=== PATIENT | female | born 1935 | race Caucasian/White ===

== ENCOUNTER 2020-12-11 16:08 | Outpatient (RCR) | payer MEDICARE, SELFPAY | END 2020-12-11 23:59 | LOC: IMMUN 16:08 | PROVIDERS: PCP Family Medicine; Referring Provider Family Medicine; Visit Provider Family Medicine | DX: Z23 Encounter for immunization (principal) | CPT/HCPCS: 0011A; 0012A; 91301 ==

== ENCOUNTER 2022-03-28 20:10 | Emergency (ER) | payer MEDICARE, OTHER, SELFPAY ==
[2022-03-28 20:11] VITALS: BP 156/90; PULSE 59; RESP 16; TEMP 36.8; O2SAT 98; BMI 22.5
[2022-03-28 20:29] VITALS: BP 156/90; PULSE 59; RESP 16; TEMP 36.8; O2SAT 98
[2022-03-28 20:38] LABS: Bacteria 0 SEEN /hpf (None Seen); Mucous, Urine 0 SEEN /hpf (<or=2+); Red Blood Cells-Urine 0 SEEN /hpf (0-5)
[2022-03-28 20:43] LABS: Color, Urine Yellow (Yellow); Glucose, Dipstick Normal (Normal); Ketone-Dipstick Negative (Negative); Leukocyte Esterase-Dipstick 500 /ul (Negative); Nitrite-Dipstick Negative (Negative); Occult Blood-Urine Negative /ul (Negative); Protein-Dipstick 15 mg/dl (Negative); Specific Gravity, Urine 1.015 (1.002-1.030); Urine Bilirubin Dipstick Negative (Negative); Urine Clarity Clear (Clear); Urine Urobilinogen Normal (Normal)
--- NOTE | 2022-03-28 20:59 | EKG12_ITS ---
Test Reason : COMPLAINT Blood Pressure : / mmHG Vent. Rate : 050 BPM Atrial Rate : 050 BPM P-R Int : 234 ms QRS Dur : 092 ms QT Int : 442 ms P-R-T Axes : 053 -13 046 degrees QTc Int : 402 ms Sinus bradycardia with 1st degree A-V block Left ventricular hypertrophy with repolarization abnormality Abnormal ECG Confirmed by PATI CASAS, TYLER ([id number]), book or script editor ETIENNE DIA ([id number]) on 03/29/2022 2:00:57 PM Referred By: JON Confirmed By:TYLER KRUEGER MD
--- NOTE | 2022-03-28 21:00 | EDS_ITS ---
HPI History of Present Illness Chief Complaint: Complaint Detail of Chief Complaint: Not feeling well for 3 days Informant: patient and family Narrative Narrative: Patient presents to the emergency department complaints of not feeling well for the last 3 days. Patient sometimes feels this way when she has a urinary tract infection. She denies dysuria, urgency, or frequency. She denies hematuria. Patient's she states that she is prone to urinary tract infections. She does have history of tremor that typically gets worse when she is not feeling well. She describes lack of energy. She denies fever or cough. She denies chest pain or shortness of breath or abdominal pain. Prior similar symptoms: Yes PFSH [facility] Medical History (Updated 03/28/22 @ 22:[address] Agnes Travis, DO) Breast cancer Diabetes Hypertension Hypothyroidism Home Medications allopurinol 100 mg PO BID 03/28/22 [History Last Taken 03/28/22] amlodipine 10 mg PO DAILY 03/28/22 [History Last Taken 03/28/22] atorvastatin 10 mg PO DAILY 03/28/22 [History Last Taken 03/28/22] cholecalciferol (vitamin D3) [Vitamin D3] 25 mcg PO DAILY 03/28/22 [History Last Taken 03/28/22] famotidine 20 mg PO DAILY 03/28/22 [History Last Taken 03/28/22] folic acid 0.8 mg PO DAILY 03/28/22 [History Last Taken 03/28/22] ketotifen fumarate [Refresh Eye Itch Relief] 1 drp EACH EYE BID 03/28/22 [History Last Taken 03/28/22] levothyroxine 50 mcg PO DAILY 03/28/22 [History Last Taken 03/28/22] lisinopril-hydrochlorothiazide 1 tab PO BID 03/28/22 [History Last Taken 03/28/22] metformin 500 mg PO BID 03/28/22 [History Last Taken 03/28/22] potassium chloride 10 meq PO DAILY 03/28/22 [History Last Taken 03/28/22] propranolol 660 mg PO DAILY 03/28/22 [History Last Taken 03/28/22] sertraline 50 mg PO DAILY 03/28/22 [History Last Taken 03/28/22] Allergy/AdvReac Type Severity Reaction Status Date / Time No Known Allergies Allergy Verified 03/28/22 20:14 Surgical History (Updated 03/28/22 @ 20:35 by Thalia Thurman) H/O left mastectomy Social History Smoking Status: Never smoker ROS ROS ED ROS Narrative Not feeling well, fatigue Constitutional Constitutional ED: Reports systems reviewed and no addt'l complaints, except as documented; Denies body ache(s), change in weight or chills Eyes Eyes: Denies acute decrease in peripheral vision, change in vision, double vision or loss of vision ENT ENT ED: Reports none; Denies ear pain, lip swelling, loss taste/smell, neck pain, otalgia or sore throat Cardiovascular Cardiovascular: Reports none; Denies abdominal pain, chest pain with activity, leg edema, lightheadedness, palpitations, rapid heart rate or syncope Respiratory/Chest Respiratory/Chest: Reports none; Denies change in mental status, dry cough, dyspnea, hemoptysis, shortness of breath at rest or shortness of breath with exertion Gastrointestinal Gastrointestinal: Reports none; Denies abdominal pain, change in stool character, diarrhea, hematemesis, hematochezia, melena, rectal bleeding or vomiting Genitourinary Genitourinary ED: Reports none; Denies abdominal discomfort, anuria, dysuria, genital pain or polyuria Musculoskeletal Musculoskeletal: Reports none; Denies arthralgias, back pain, difficulty walking, extremity pain, muscle weakness or myalgias Integumentary Reports none; Denies abscess or rash Neurologic Neurologic: Reports none; Denies abnormal gait, confusion, focal weakness, frequent falls, headache(s), loss of vision, numbness, paresthesias, radicular pain, vertigo or weakness Psychiatric Psychiatric: Reports systems reviewed and no addt'l complaints, except as documented and none; Denies behavioral changes, confusion, difficulty concentrating, hallucinations, suicidal ideation, tactile hallucinations or visual hallucinations Endocrine Endocrinology: Denies none, cold intolerance, excessive sweating, fatigue or heat intolerance Hematologic/Lymphatic Hematologic/Lymphatic: Reports none; Denies anemia, easy bleeding or easy bruising Allergic/Immunologic Allergic/Immunologic ED: Denies as per HPI, none, lip swelling, mouth swelling, throat swelling, tongue swelling or hives EXAM Physical Exam Const Vital Signs: 03/28/22 20:11 03/28/22 20:29 03/28/22 21:14 Temperature 98.3 F 98.3 F Temperature Source Temporal Temporal Pulse Rate 59 L 59 L 49 L Respiratory Rate 16 16 15 Blood Pressure 156/90 H 156/90 H 175/63 H Blood Pressure Mean 112 112 100 Pulse Ox 98 98 95 Oxygen Delivery Method Room Air Room Air Room Air Positive well nourished and well developed General Appearance ED: well developed and NAD HEENT Reports TM's clear and moist mucous membranes normocephalic and atraumatic; Negative for trauma or tenderness Tympanic Membrane ED: Yes TM's clear Eyes PERRL and EOMs intact bilaterally General Eye ED: Negative for pale conjunctiva or scleral icterus Neck no lymphadenopathy, supple and no JVD General: Negative for tenderness Chest Wall inspection of chest normal and palpation of chest normal Chest: Negative for tenderness Resp normal respiratory effort and clear to auscultation bilaterally Effort and Inspection: Negative for respiratory distress or pain with movement Auscultation: Negative for rhonchi, wheezes or diminished lung sounds Cardio regular rate, regular rhythm, S1 normal heart sound, S2 normal heart sound and no murmurs Peripheral Pulses: pulses 2+ throughout GI normal to inspection, nondistended, normoactive bowel sounds, soft to palpation, non-tender, non-distended and no masses Back/Spine no CVA tenderness and no thoracic nor lumbar tenderness Extremity normal to inspection General Extremety ED: Negative for edema General Extremity: Negative for edema Neuro oriented x3, CN's II-XII intact bilaterally, no sensory deficits noted and gait normal Sensorium / Orientation: awake, alert, oriented to person, oriented to place and oriented to time Motor Exam: strength 5/5 throughout and strength abnormal Psych mental status grossly normal Skin no rashes or lesions noted and no wounds MDM MDM MDM Narrative Medical decision making narrative: IV line established on arrival. EKG obtained showed a sinus rhythm with a rate of 50 bpm with a first-degree AV block. Chemistries unremarkable. CBC with differential unremarkable. Urinalysis showed 5-10 WBCs and 500 excite esterase but no bacteria. Urine culture was sent. Patient had negative COVID test as well as influenza screen. At this point etiology of her weakness is unclear. Patient advised to follow-up with primary care physician 3 to 5 days for culture results. Lab Data Attestation: I reviewed the patient's lab results. Labs: Laboratory Results - last 24 hr 03/28/22 03/28/22 03/28/22 20:30 20:30 21:10 WBC 8.7 RBC 3.53 L Hgb 11.8 L Hct 35.6 L MCV 100.8 H MCH 33.4 H MCHC 33.1 RDW Std Deviation 47.8 H RDW Coeff of Claribel 13.0 Plt Count 291 MPV 10.2 Immature Gran % (Auto) 0.300 Neut % (Auto) 53.2 Lymph % (Auto) 32.2 [place] % (Auto) 9.9 Eos % (Auto) 3.9 Baso % (Auto) 0.5 Absolute Neuts (auto) 4.6 Absolute Lymphs (auto) 2.79 Nucleated RBC % 0 Sodium Potassium Chloride Carbon Dioxide Anion Gap BUN Creatinine Estim Creat Clear Calc Est GFR (MDRD) Af Amer Est GFR (MDRD) Non-Af BUN/Creatinine Ratio Glucose Calcium Troponin I High Sens Urine Color Yellow YELLOW Urine Clarity Clear Clear Urine pH 6.0 6.0 Ur Specific [place] 1.015 1.015 Urine Protein 15 H Negative Urine Glucose (UA) Normal Normal Urine Ketones Negative Negative Urine Occult Blood Negative 10 H Urine Nitrite Negative Negative Urine Bilirubin Negative Negative Urine Urobilinogen Normal Normal Ur Leukocyte Esterase 500 H 500 H Urine RBC 0 SEEN Urine WBC 5-10 SEEN Ur Squamous Epith Cells 0-5 SEEN Urine Bacteria 0 SEEN Urine Mucus 0 SEEN 03/28/22 21:10 WBC RBC Hgb Hct MCV MCH MCHC RDW Std Deviation RDW Coeff of [place] Plt Count MPV Immature Gran % (Auto) Neut % (Auto) Lymph % (Auto) [place] % (Auto) Eos % (Auto) Baso % (Auto) Absolute Neuts (auto) Absolute Lymphs (auto) Nucleated RBC % Sodium 139 Potassium 4.5 Chloride 109 H Carbon Dioxide 24.0 Anion Gap 6 BUN 43 H Creatinine 1.01 Estim Creat Clear Calc 40.32 Est GFR (MDRD) Af Amer 67 Est GFR (MDRD) Non-Af 55 L BUN/Creatinine Ratio 42.6 H Glucose 94 Calcium 9.8 Troponin I High Sens 28 Urine Color Urine Clarity Urine pH Ur Specific [place] Urine Protein Urine Glucose (UA) Urine Ketones Urine Occult Blood Urine Nitrite Urine Bilirubin Urine Urobilinogen Ur Leukocyte Esterase Urine RBC Urine WBC Ur Squamous Epith Cells Urine Bacteria Urine Mucus EKG Initial EKG: Attestation: I personally reviewed and interpreted this EKG as follows: Comments: Sinus rhythm with a rate of 50 bpm with a first-degree AV block and LVH. Discharge Plan Triage Chief Complaint: Complaint ED Provider: Agnes Travis Dx/Rx/DC Orders Clinical Impression: Weakness Instructions: ED Weakness (Uncertain Cause) Prescriptions: No Action metformin 500 mg Tablet 500 mg PO BID RF: 0 potassium chloride 10 mEq Capsule, Extended Release 10 meq PO DAILY RF: 0 atorvastatin 10 mg tablet 10 mg PO DAILY RF: 0 lisinopril-hydrochlorothiazide 20-12.5 mg tablet 1 tab PO BID RF: 0 ketotifen fumarate [Refresh Eye Itch Relief] 0.025 % (0.035 %) Drops 1 drp EACH EYE BID RF: 0 propranolol 60 mg capsule,extended release 24 hr 660 mg PO DAILY RF: 0 allopurinol 100 mg Tablet 100 mg PO BID RF: 0 famotidine 20 mg Tablet 20 mg PO DAILY RF: 0 amlodipine 10 mg tablet 10 mg PO DAILY RF: 0 levothyroxine 50 mcg Tablet 50 mcg PO DAILY RF: 0 sertraline 50 mg tablet 50 mg PO DAILY RF: 0 folic acid 800 mcg Tablet 0.8 mg PO DAILY RF: 0 cholecalciferol (vitamin D3) [Vitamin D3] 25 mcg (1,000 unit) Tablet 25 mcg PO DAILY RF: 0 Primary Care Provider: Severino Llanes Referrals: Severino Llanes MD [Primary Care Provider] - 3-5 Days Disposition Disposition: Home, Self Care
[2022-03-28 21:04] LABS: Squamous Epithelial Cells - UA 0-5 SEEN /hpf (5-10); White Blood Cells 5-10 SEEN /hpf (0-5)
[2022-03-28 21:14] VITALS: BP 175/63; PULSE 49; RESP 15; O2SAT 95
[2022-03-28] MEDS: 0.9% Normal Saline 1,000 ML 150 ML IV (21:23)
[2022-03-28 21:39] LABS: Absolute Lymphocyte Count 2.79 X10^3/uL (0.83-4.51); Absolute Neutrophil Count 4.6 X10^3/uL (2.0-7.7); Basophil# 0.04 X10^3/uL; Basophil% 0.5 % (0-1); Eosinophil# 0.34 X10^3/uL; Eosinophils% 3.9 % (0-5); Hematocrit 35.6 % (37-47); Hemoglobin 11.8 g/dL (12.0-15.0); Lymphocyte # 2.79 X10^3/ul (0.83-4.51); Lymphocyte % 32.2 % (19-41); Mean Corp Hgb Conc 33.1 g/dL (32-36); Mean Corpuscular Hgb 33.4 pg (27.0-32.0); Mean Corpuscular Volume 100.8 fL (81-99); Mean Platelet Vol. 10.2 fl (6.2-12.0); Monocyte# 0.86 X10^3/uL; Monocyte% 9.9 % (0-10); NRBC Flagged by Analyzer 0 % (0-5); Neutrophil % 53.2 % (47-70); Platelet Count 291 K/mm3 (150-450); RBC Distribution Width SD 47.8 fl (35.1-43.9); Red Blood Count 3.53 M/mm3 (4.2-5.4); White Blood Count 8.7 K/mm3 (4.4-11.0)
[2022-03-28 21:54] LABS: Anion Gap 6 (5-15); BUN 43 mg/dL (7-18); BUN/Creat Ratio 42.6 RATIO (10-20); Calcium,Total 9.8 mg/dL (8.5-10.1); Chloride 109 mmol/L (98-107); Creatinine, Serum 1.01 mg/dL (0.55-1.02); EST Glomerular Filtration Rate 55 mL/min (>60); Est Glom Filt Rate - Afr Amer 67 mL/min (>60); Estimated Creatinine Clearance 40.32 ml/min; Glucose 94 mg/dL (74-106); Potassium 4.5 mmol/L (3.5-5.1); Sodium Level 139 mmol/L (136-145); Troponin-I HS 28 pg/mL (3.0-54.0)
[2022-03-28 22:41] VITALS: BP 159/83; PULSE 53; RESP 17; O2SAT 97
== END 2022-03-28 23:00 | disposition home or self-care (01) ==
PROVIDERS: Emergency Provider Emergency Medicine; PCP Family Medicine; Visit Provider Emergency Medicine
DX: R53.1 Weakness (principal); E11.9 Type 2 diabetes mellitus without complications; I44.0 Atrioventricular block, first degree; Z87.440 Personal history of urinary (tract) infections; Z85.3 Personal history of malignant neoplasm of breast; I10 Essential (primary) hypertension; Z79.84 Long term (current) use of oral hypoglycemic drugs; Z79.899 Other long term (current) drug therapy
CPT/HCPCS: 80048; 81001; 84484; 85025; 87086; 87088; 87428; 93005; 96360; 99283; J7030; A4216